=== PATIENT | female | born 1955 | race Caucasian/White ===

== ENCOUNTER 2021-03-24 13:04 | Inpatient (IN) | payer OTHER ==
[2021-03-24 16:12] LABS: BASO % 0.1 % (0-2.0); EOS % 2.7 % (0-4.5); HEMATOCRIT 26.5 % (32.4-45.2); HEMOGLOBIN 8.4 GM/dL (10.7-15.3); LYMPH % 20.6 % (8-40); MCH 23.1 pg (25.7-33.7); MCHC 31.7 g/dl (32.0-36.0); MEAN PLT VOLUME 8.8 fl (7.5-11.1); MONO % 5.5 % (3.8-10.2); NEUT % 71.1 % (42.8-82.8); PLATELET COUNT 221 10^3/uL (134-434); RBC 3.63 M/mm3 (3.60-5.2); RDW 17.4 % (11.6-15.6); WHITE BLOOD COUNT 8.3 K/mm3 (4.0-10.0)
[2021-03-24 16:31] LABS: INR 1.42 (0.83-1.09)
[2021-03-24 16:32] LABS: CHLORIDE 109 mmol/L (98-107); SODIUM 142 mmol/L (136-145)
[2021-03-24 16:34] LABS: CALCIUM 9.7 mg/dL (8.5-10.1)
[2021-03-24 16:35] LABS: ALBUMIN 4.1 g/dl (3.4-5.0); ANION GAP 7 MMOL/L (8-16); BLOOD UREA NITROGEN 29.9 mg/dL (7-18); CO2 25 mmol/L (21-32); GLUCOSE,RANDOM 134 mg/dL (74-106)
[2021-03-24 16:38] LABS: CREATININE 2.1 mg/dL (0.55-1.3); SGOT/AST 13 U/L (15-37); SGPT/ALT 27 U/L (13-61)
[2021-03-24 16:40] LABS: BILIRUBIN,TOTAL 0.3 mg/dL (0.2-1); TOT PROT 8.1 g/dl (6.4-8.2)
[2021-03-24 16:41] LABS: ALK PHOS 101 U/L (45-117)
[2021-03-24 20:07] LABS: EPI CELLS 3 /uL (0-25.1); HYALINE CASTS 0 /uL (0-3.1); PH,URINE 5.5 (5.0-8.0); URINE APPEARANCE CLEAR; URINE BACTERIA 14 /uL (0-1359); URINE BILIRUBIN NEGATIVE (NEGATIVE); URINE COLOR YELLOW; URINE GLUCOSE (UA) NEGATIVE (NEGATIVE); URINE KETONE NEGATIVE (NEGATIVE); URINE LEUK ESTERASE 1+ (NEGATIVE); URINE NITRITE NEGATIVE (NEGATIVE); URINE PROTEIN NEGATIVE (NEGATIVE); URINE RBC 1 /uL (0-23.9); URINE UROBILINOGEN 0.2 mg/dL (0.2-1.0); URINE WBC 20 /uL (0-25.8)
[2021-03-24] MEDS ORDERED: SODIUM CHLORIDE 1,000 ML IV SCH (23:15)
[2021-03-25 00:29] LABS: IRON SERUM 29 ug/dL (50-175); TOTAL IRON BINDING CAPACITY 434 ug/dL (250-450)
[2021-03-25] MEDS: LEVOTHYROXINE NA 100 MCG TABLET (FP) PO SCH (06:01)
[2021-03-25] MEDS ORDERED: ALBUTEROL SO4 HFA INHALER IH PRN (06:01)
[2021-03-25 07:22] LABS: BASO % 0.4 % (0-2.0); EOS % 2.8 % (0-4.5); HEMATOCRIT 23.4 % (32.4-45.2); HEMOGLOBIN 7.4 GM/dL (10.7-15.3); LYMPH % 22.7 % (8-40); MCH 23.3 pg (25.7-33.7); MCHC 31.8 g/dl (32.0-36.0); MEAN CELL VOLUME 73.3 fl (80-96); MEAN PLT VOLUME 9.2 fl (7.5-11.1); MONO % 6.8 % (3.8-10.2); NEUT % 67.3 % (42.8-82.8); PLATELET COUNT 179 10^3/uL (134-434); RBC 3.19 M/mm3 (3.60-5.2); WHITE BLOOD COUNT 7.3 K/mm3 (4.0-10.0)
[2021-03-25 07:37] LABS: CHLORIDE 112 mmol/L (98-107); SODIUM 143 mmol/L (136-145)
[2021-03-25 07:45] LABS: ALBUMIN 3.5 g/dl (3.4-5.0); ANION GAP 8 MMOL/L (8-16); BLOOD UREA NITROGEN 30.4 mg/dL (7-18); CALCIUM 8.3 mg/dL (8.5-10.1); CO2 24 mmol/L (21-32); GLUCOSE,RANDOM 102 mg/dL (74-106); MAGNESIUM 2.5 mg/dL (1.8-2.4)
[2021-03-25 07:48] LABS: PHOSPHOROUS 4.7 mg/dL (2.5-4.9); SGOT/AST 13 U/L (15-37); SGPT/ALT 23 U/L (13-61)
[2021-03-25 07:49] LABS: BILIRUBIN,TOTAL 0.3 mg/dL (0.2-1); TOT PROT 6.8 g/dl (6.4-8.2)
[2021-03-25 07:50] LABS: ALK PHOS 83 U/L (45-117)
[2021-03-25] MEDS: APIXABAN 5 MG TABLET PO SCH ×2 (09:00→21:41)
[2021-03-25] MEDS ORDERED: POLYETHYLENE GLYCOL (HEALTHYLAX) 3350 17 GM PACKET PO ONE (09:48)
[2021-03-25] MEDS ORDERED: ALBUTEROL SO4 HFA INHALER IH SCH (10:00)
[2021-03-25] MEDS: PANTOPRAZOLE 40 MG TABLET PO SCH (10:49)
[2021-03-25] MEDS ORDERED: IRON SUCROSE INJECTION 100 MG in SODIUM CHLORIDE 95 ML IVPB ONE (13:45)
[2021-03-25] MEDS ORDERED: PT OWN MED DRAWER 7, Y5N ONE (18:26)
[2021-03-25] MEDS ORDERED: ARIPiprazole 5 MG TABLET ONE (21:21)
[2021-03-25] MEDS ORDERED: TOLTERODINE TARTRATE LA 4 MG CAP.SR.24H (FP) PO SCH (21:30)
[2021-03-25] MEDS: BENZTROPINE MESYLATE 0.5 MG TABLET (FP) PO SCH (21:41)
[2021-03-25] MEDS: ARIPiprazole 10 MG TABLET PO SCH (21:41)
[2021-03-25] MEDS: ATORVASTATIN CA 10 MG TABLET (FP) PO SCH (21:41)
[2021-03-25] MEDS: INSULIN SLIDING SCALE (NOVOLOG) 1 VIAL SQ SCH (21:41)
[2021-03-25] MEDS: clonazePAM 0.5 MG TABLET PO PRN (21:42)
[2021-03-25] MEDS ORDERED: TOLTERODINE TARTRATE LA 2 MG CAP.SR.24H PO SCH (22:00)
[2021-03-25] MEDS: OLANZapine 10 MG TABLET PO SCH (22:47)
[2021-03-26 06:02] LABS: BASO % 0.1 % (0-2.0); EOS % 3.2 % (0-4.5); HEMATOCRIT 23.8 % (32.4-45.2); HEMOGLOBIN 7.5 GM/dL (10.7-15.3); MCH 23.1 pg (25.7-33.7); MCHC 31.4 g/dl (32.0-36.0); MEAN CELL VOLUME 73.6 fl (80-96); MEAN PLT VOLUME 8.7 fl (7.5-11.1); MONO % 6.1 % (3.8-10.2); NEUT % 83.6 % (42.8-82.8); PLATELET COUNT 150 10^3/uL (134-434); RBC 3.24 M/mm3 (3.60-5.2); RDW 16.8 % (11.6-15.6); WHITE BLOOD COUNT 5.8 K/mm3 (4.0-10.0)
[2021-03-26 06:33] LABS: ALBUMIN 3.3 g/dl (3.4-5.0); BLOOD UREA NITROGEN 30.1 mg/dL (7-18); CALCIUM 8.2 mg/dL (8.5-10.1); MAGNESIUM 2.5 mg/dL (1.8-2.4)
[2021-03-26 06:36] LABS: CREATININE 2.2 mg/dL (0.55-1.3)
[2021-03-26] MEDS: LEVOTHYROXINE NA 100 MCG TABLET (FP) PO SCH (06:36)
[2021-03-26] MEDS: INSULIN SLIDING SCALE (NOVOLOG) 1 VIAL SQ SCH ×4 (06:37→21:52)
[2021-03-26] MEDS: GLIMEPIRIDE 1 MG TABLET PO SCH (06:37)
[2021-03-26 06:38] LABS: BILIRUBIN,TOTAL 0.3 mg/dL (0.2-1); TOT PROT 6.6 g/dl (6.4-8.2)
[2021-03-26] MEDS ORDERED: IRON SUCROSE INJECTION 100 MG in SODIUM CHLORIDE 95 ML IVPB ONE (08:01)
[2021-03-26] MEDS ORDERED: PT OWN MED DRAWER 7, Y5N ONE ×4 (09:42→21:47)
[2021-03-26] MEDS: APIXABAN 5 MG TABLET PO SCH ×2 (09:43→21:52)
[2021-03-26] MEDS: PANTOPRAZOLE 40 MG TABLET PO SCH (09:43)
[2021-03-26] MEDS: clonazePAM 0.5 MG TABLET PO PRN ×2 (09:44→21:53)
[2021-03-26] MEDS: lamoTRIgine 100 MG TABLET PO SCH (09:45)
[2021-03-26] MEDS: ALBUTEROL SO4 2.5/IPRATROPIUM 0.5 INH SOL 3 ML VIAL.NEB. NEB PRN (12:00)
[2021-03-26] MEDS: FLUTICASONE/SALMETEROL 100 MCG/50 MCG DISKUS IH SCH ×2 (12:11→22:00)
[2021-03-26] MEDS ORDERED: TOLTERODINE TARTRATE LA 2 MG CAP.SR.24H PO SCH (13:00)
[2021-03-26] MEDS ORDERED: TOLTERODINE TARTRATE LA 4 MG CAP.SR.24H (FP) PO SCH (14:25)
[2021-03-26] MEDS ORDERED: BISACODYL 10 MG SUPP.RECT PR ONE (14:35)
[2021-03-26] MEDS ORDERED: TOLTERODINE TARTRATE 2 MG TABLET PO ONE (16:00)
[2021-03-26] MEDS: DOCUSATE SODIUM 100 MG CAPSULE (FP) PO SCH ×2 (16:09→21:52)
[2021-03-26] MEDS: POLYETHYLENE GLYCOL (HEALTHYLAX) 3350 17 GM PACKET PO SCH (16:12)
[2021-03-26] MEDS ORDERED: MINERAL OIL ENEMA 133 ML ENEMA PR ONE (19:23)
[2021-03-26] MEDS ORDERED: ARIPiprazole 5 MG TABLET ONE (21:45)
[2021-03-26] MEDS: ARIPiprazole 10 MG TABLET PO SCH (21:50)
[2021-03-26] MEDS: MOMETASONE FUROATE 220 MCG/IH INHALER IH SCH (21:51)
[2021-03-26] MEDS: ATORVASTATIN CA 10 MG TABLET (FP) PO SCH (21:52)
[2021-03-26] MEDS: BENZTROPINE MESYLATE 0.5 MG TABLET (FP) PO SCH (21:52)
[2021-03-26] MEDS: OLANZapine 10 MG TABLET PO SCH (21:53)
[2021-03-27] MEDS: INSULIN SLIDING SCALE (NOVOLOG) 1 VIAL SQ SCH ×4 (06:22→22:23)
[2021-03-27] MEDS ORDERED: PT OWN MED DRAWER 7, Y5N ONE ×2 (06:45→09:21)
[2021-03-27] MEDS: GLIMEPIRIDE 1 MG TABLET PO SCH (06:49)
[2021-03-27] MEDS: LEVOTHYROXINE NA 100 MCG TABLET (FP) PO SCH (06:49)
[2021-03-27] MEDS: DOCUSATE SODIUM 100 MG CAPSULE (FP) PO SCH ×3 (06:49→21:44)
[2021-03-27 07:20] LABS: ALBUMIN 3.4 g/dl (3.4-5.0); BLOOD UREA NITROGEN 24.6 mg/dL (7-18)
[2021-03-27 07:21] LABS: BASO % 0.4 % (0-2.0); EOS % 3.2 % (0-4.5); HEMATOCRIT 23.7 % (32.4-45.2); HEMOGLOBIN 7.4 GM/dL (10.7-15.3); MCH 22.8 pg (25.7-33.7); MEAN CELL VOLUME 73.6 fl (80-96); MEAN PLT VOLUME 8.7 fl (7.5-11.1); MONO % 5.5 % (3.8-10.2); NEUT % 78.9 % (42.8-82.8); PLATELET COUNT 136 10^3/uL (134-434); RBC 3.22 M/mm3 (3.60-5.2); RDW 17.2 % (11.6-15.6); WHITE BLOOD COUNT 4.3 K/mm3 (4.0-10.0)
[2021-03-27 07:23] LABS: CREATININE 2.1 mg/dL (0.55-1.3)
[2021-03-27 07:24] LABS: BILIRUBIN,TOTAL 0.3 mg/dL (0.2-1)
[2021-03-27] MEDS: ALBUTEROL SO4 2.5/IPRATROPIUM 0.5 INH SOL 3 ML VIAL.NEB. NEB PRN (07:30)
[2021-03-27 07:48] LABS: TOT PROT 6.9 g/dl (6.4-8.2)
[2021-03-27] MEDS: POLYETHYLENE GLYCOL (HEALTHYLAX) 3350 17 GM PACKET PO SCH ×3 (09:24→21:44)
[2021-03-27] MEDS: APIXABAN 5 MG TABLET PO SCH (09:24)
[2021-03-27] MEDS: PANTOPRAZOLE 40 MG TABLET PO SCH (09:24)
[2021-03-27] MEDS: lamoTRIgine 100 MG TABLET PO SCH (09:26)
[2021-03-27] MEDS: FLUTICASONE/SALMETEROL 100 MCG/50 MCG DISKUS IH SCH ×2 (09:26→22:37)
[2021-03-27] MEDS ORDERED: IRON SUCROSE INJECTION 200 MG in SODIUM CHLORIDE 90 ML IVPB ONE (09:30)
[2021-03-27] MEDS: clonazePAM 0.5 MG TABLET PO PRN (09:35)
[2021-03-27] MEDS ORDERED: HEPARIN NA (PORCINE) 5,000 UNITS/ML 1ML VIAL IVPUSH PRN ×2 (14:16)
[2021-03-27] MEDS ORDERED: ARIPiprazole 5 MG TABLET ONE (21:29)
[2021-03-27] MEDS: OLANZapine 10 MG TABLET PO SCH (21:44)
[2021-03-27] MEDS: ARIPiprazole 10 MG TABLET PO SCH (21:44)
[2021-03-27] MEDS: ATORVASTATIN CA 10 MG TABLET (FP) PO SCH (21:44)
[2021-03-27] MEDS ORDERED: HEPARIN INFUSION - 25,000 UNITS/500 ML INFUS.BAG IVPB SCH (22:00)
[2021-03-27] MEDS: MOMETASONE FUROATE 220 MCG/IH INHALER IH SCH (22:37)
[2021-03-27] MEDS: BENZTROPINE MESYLATE 0.5 MG TABLET (FP) PO SCH (23:13)
[2021-03-28] MEDS: POLYETHYLENE GLYCOL (HEALTHYLAX) 3350 17 GM PACKET PO SCH ×3 (05:58→21:02)
[2021-03-28] MEDS: DOCUSATE SODIUM 100 MG CAPSULE (FP) PO SCH ×3 (05:58→21:02)
[2021-03-28] MEDS: GLIMEPIRIDE 1 MG TABLET PO SCH (06:03)
[2021-03-28] MEDS: INSULIN SLIDING SCALE (NOVOLOG) 1 VIAL SQ SCH ×4 (06:03→21:03)
[2021-03-28] MEDS: LEVOTHYROXINE NA 100 MCG TABLET (FP) PO SCH (06:07)
[2021-03-28] MEDS ORDERED: HEPARIN NA (PORCINE) 5,000 UNITS/ML 1ML VIAL IVPUSH PRN ×2 (07:30)
[2021-03-28] MEDS ORDERED: ALBUTEROL SO4 HFA INHALER IH PRN (07:30)
[2021-03-28] MEDS ORDERED: ALBUTEROL SO4 2.5/IPRATROPIUM 0.5 INH SOL 3 ML VIAL.NEB. NEB PRN (07:30)
[2021-03-28 08:41] LABS: BASO % 0.6 % (0-2.0); EOS % 3.5 % (0-4.5); HEMATOCRIT 23.8 % (32.4-45.2); HEMOGLOBIN 7.4 GM/dL (10.7-15.3); LYMPH % 25.8 % (8-40); MCH 22.8 pg (25.7-33.7); MEAN CELL VOLUME 73.5 fl (80-96); MEAN PLT VOLUME 8.9 fl (7.5-11.1); NEUT % 60.1 % (42.8-82.8); PLATELET COUNT 154 10^3/uL (134-434); RBC 3.24 M/mm3 (3.60-5.2); RDW 17.2 % (11.6-15.6); WHITE BLOOD COUNT 4.2 K/mm3 (4.0-10.0)
[2021-03-28 09:49] LABS: ALBUMIN 3.4 g/dl (3.4-5.0); BILIRUBIN,TOTAL 0.3 mg/dL (0.2-1); BLOOD UREA NITROGEN 25.5 mg/dL (7-18); CALCIUM 8.5 mg/dL (8.5-10.1); TOT PROT 6.8 g/dl (6.4-8.2)
[2021-03-28] MEDS ORDERED: PT OWN MED DRAWER 7, Y5N ONE ×3 (11:25→20:47)
[2021-03-28] MEDS: PANTOPRAZOLE 40 MG TABLET PO SCH (11:26)
[2021-03-28] MEDS: lamoTRIgine 100 MG TABLET PO SCH (11:26)
[2021-03-28] MEDS: TOLTERODINE TARTRATE LA 4 MG CAP.SR.24H (FP) PO SCH (11:27)
[2021-03-28] MEDS: FLUTICASONE/SALMETEROL 100 MCG/50 MCG DISKUS IH SCH ×2 (11:29→21:04)
[2021-03-28] MEDS: clonazePAM 0.5 MG TABLET PO PRN ×2 (11:35→23:44)
[2021-03-28] MEDS: HEPARIN INFUSION - 25,000 UNITS/500 ML INFUS.BAG IVPB SCH ×3 (11:36→20:56)
[2021-03-28] MEDS: HEPARIN NA (PORCINE) 5,000 UNITS/ML 1ML VIAL IVPUSH PRN (12:09)
[2021-03-28] MEDS ORDERED: ARIPiprazole 5 MG TABLET ONE (20:46)
[2021-03-28] MEDS: ARIPiprazole 10 MG TABLET PO SCH (21:02)
[2021-03-28] MEDS: BENZTROPINE MESYLATE 0.5 MG TABLET (FP) PO SCH (21:02)
[2021-03-28] MEDS: ATORVASTATIN CA 10 MG TABLET (FP) PO SCH (21:02)
[2021-03-28] MEDS: OLANZapine 10 MG TABLET PO SCH (21:03)
[2021-03-28] MEDS ORDERED: MOMETASONE FUROATE 220 MCG/IH INHALER IH SCH (22:00)
[2021-03-29] MEDS: HEPARIN NA (PORCINE) 5,000 UNITS/ML 1ML VIAL IVPUSH PRN (01:50)
[2021-03-29] MEDS: HEPARIN INFUSION - 25,000 UNITS/500 ML INFUS.BAG IVPB SCH ×3 (01:53→14:12)
[2021-03-29] MEDS ORDERED: PT OWN MED DRAWER 7, Y5N ONE ×3 (05:16→10:10)
[2021-03-29] MEDS: POLYETHYLENE GLYCOL (HEALTHYLAX) 3350 17 GM PACKET PO SCH ×3 (06:14→21:29)
[2021-03-29] MEDS: DOCUSATE SODIUM 100 MG CAPSULE (FP) PO SCH ×3 (06:15→21:26)
[2021-03-29] MEDS: LEVOTHYROXINE NA 100 MCG TABLET (FP) PO SCH (06:16)
[2021-03-29] MEDS: INSULIN SLIDING SCALE (NOVOLOG) 1 VIAL SQ SCH ×4 (06:16→21:28)
[2021-03-29] MEDS: GLIMEPIRIDE 1 MG TABLET PO SCH (06:16)
[2021-03-29 07:32] LABS: BASO % 0.3 % (0-2.0); EOS % 4.5 % (0-4.5); HEMATOCRIT 24.5 % (32.4-45.2); HEMOGLOBIN 7.8 GM/dL (10.7-15.3); LYMPH % 22.9 % (8-40); MCH 23.8 pg (25.7-33.7); MCHC 31.8 g/dl (32.0-36.0); MEAN CELL VOLUME 74.9 fl (80-96); MEAN PLT VOLUME 8.9 fl (7.5-11.1); MONO % 7.6 % (3.8-10.2); NEUT % 64.7 % (42.8-82.8); PLATELET COUNT 169 10^3/uL (134-434); RBC 3.27 M/mm3 (3.60-5.2); RDW 17.6 % (11.6-15.6); WHITE BLOOD COUNT 5.9 K/mm3 (4.0-10.0)
[2021-03-29] MEDS: PANTOPRAZOLE 40 MG TABLET PO SCH (09:55)
[2021-03-29] MEDS: lamoTRIgine 100 MG TABLET PO SCH (09:56)
[2021-03-29] MEDS: TOLTERODINE TARTRATE LA 4 MG CAP.SR.24H (FP) PO SCH (09:56)
[2021-03-29 10:03] LABS: ALBUMIN 3.6 g/dl (3.4-5.0); BILIRUBIN,TOTAL 0.3 mg/dL (0.2-1); CALCIUM 8.9 mg/dL (8.5-10.1); CREATININE 2.2 mg/dL (0.55-1.3); MAGNESIUM 2.7 mg/dL (1.8-2.4)
[2021-03-29] MEDS: FLUTICASONE/SALMETEROL 100 MCG/50 MCG DISKUS IH SCH ×2 (10:03→21:30)
[2021-03-29] MEDS ORDERED: INSULIN (NOVOLOG) ASPART 100 UNITS/ML 10ML VIAL ONE (11:24)
[2021-03-29] MEDS: clonazePAM 0.5 MG TABLET PO PRN (12:04)
[2021-03-29] MEDS ORDERED: ARIPiprazole 5 MG TABLET ONE (20:55)
[2021-03-29] MEDS: ATORVASTATIN CA 10 MG TABLET (FP) PO SCH (21:26)
[2021-03-29] MEDS: ARIPiprazole 10 MG TABLET PO SCH (21:26)
[2021-03-29] MEDS: BENZTROPINE MESYLATE 0.5 MG TABLET (FP) PO SCH (21:27)
[2021-03-29] MEDS: OLANZapine 10 MG TABLET PO SCH (21:27)
[2021-03-30] MEDS ORDERED: PT OWN MED DRAWER 7, Y5N ONE ×3 (05:27→10:26)
[2021-03-30] MEDS: POLYETHYLENE GLYCOL (HEALTHYLAX) 3350 17 GM PACKET PO SCH (05:55)
[2021-03-30] MEDS: DOCUSATE SODIUM 100 MG CAPSULE (FP) PO SCH ×3 (05:56→21:15)
[2021-03-30] MEDS: INSULIN SLIDING SCALE (NOVOLOG) 1 VIAL SQ SCH ×4 (06:03→21:18)
[2021-03-30] MEDS: LEVOTHYROXINE NA 100 MCG TABLET (FP) PO SCH (06:03)
[2021-03-30] MEDS: GLIMEPIRIDE 1 MG TABLET PO SCH (06:03)
[2021-03-30] MEDS: HEPARIN INFUSION - 25,000 UNITS/500 ML INFUS.BAG IVPB SCH (06:51)
[2021-03-30 08:29] LABS: BASO % 0.3 % (0-2.0); EOS % 3.5 % (0-4.5); HEMATOCRIT 23.1 % (32.4-45.2); HEMOGLOBIN 7.1 GM/dL (10.7-15.3); LYMPH % 19.8 % (8-40); MCH 23.5 pg (25.7-33.7); MCHC 30.9 g/dl (32.0-36.0); MEAN CELL VOLUME 75.9 fl (80-96); MEAN PLT VOLUME 9.3 fl (7.5-11.1); MONO % 6.6 % (3.8-10.2); NEUT % 69.8 % (42.8-82.8); PLATELET COUNT 148 10^3/uL (134-434); RBC 3.04 M/mm3 (3.60-5.2); RDW 17.4 % (11.6-15.6); WHITE BLOOD COUNT 4.6 K/mm3 (4.0-10.0)
[2021-03-30 08:47] LABS: CALCIUM 8.5 mg/dL (8.5-10.1)
[2021-03-30 08:48] LABS: ALBUMIN 3.3 g/dl (3.4-5.0); BLOOD UREA NITROGEN 28.3 mg/dL (7-18); MAGNESIUM 2.6 mg/dL (1.8-2.4)
[2021-03-30 08:51] LABS: CREATININE 1.9 mg/dL (0.55-1.3)
[2021-03-30 08:52] LABS: BILIRUBIN,TOTAL 0.3 mg/dL (0.2-1); TOT PROT 7.1 g/dl (6.4-8.2)
[2021-03-30] MEDS ORDERED: PEG 3350/NA SULF BICARB CL/KCL 4000 ML SOLN.RECON PO ONE (09:00)
[2021-03-30] MEDS: lamoTRIgine 100 MG TABLET PO SCH (10:19)
[2021-03-30] MEDS: TOLTERODINE TARTRATE LA 4 MG CAP.SR.24H (FP) PO SCH (10:20)
[2021-03-30] MEDS: PANTOPRAZOLE 40 MG TABLET PO SCH (10:20)
[2021-03-30] MEDS: FLUTICASONE/SALMETEROL 100 MCG/50 MCG DISKUS IH SCH ×2 (10:20→21:15)
[2021-03-30] MEDS: clonazePAM 0.5 MG TABLET PO PRN ×2 (10:28→21:23)
[2021-03-30] MEDS: ACETAMINOPHEN 325 MG TABLET (FP) PO PRN (18:40)
[2021-03-30] MEDS ORDERED: BISACODYL 5 MG TABLET.DR (FP) PO ONE (20:00)
[2021-03-30] MEDS ORDERED: ARIPiprazole 5 MG TABLET ONE (20:42)
[2021-03-30] MEDS: ARIPiprazole 10 MG TABLET PO SCH (21:15)
[2021-03-30] MEDS: BENZTROPINE MESYLATE 0.5 MG TABLET (FP) PO SCH (21:15)
[2021-03-30] MEDS: OLANZapine 10 MG TABLET PO SCH (21:16)
[2021-03-30] MEDS: ATORVASTATIN CA 10 MG TABLET (FP) PO SCH (21:16)
[2021-03-31] MEDS: LEVOTHYROXINE NA 100 MCG TABLET (FP) PO SCH (06:23)
[2021-03-31] MEDS: GLIMEPIRIDE 1 MG TABLET PO SCH (06:24)
[2021-03-31] MEDS: INSULIN SLIDING SCALE (NOVOLOG) 1 VIAL SQ SCH ×4 (06:25→21:15)
[2021-03-31] MEDS: DOCUSATE SODIUM 100 MG CAPSULE (FP) PO SCH ×3 (06:38→21:09)
[2021-03-31 08:34] LABS: BASO % 0.7 % (0-2.0); EOS % 3.5 % (0-4.5); HEMATOCRIT 28.4 % (32.4-45.2); HEMOGLOBIN 9.2 GM/dL (10.7-15.3); LYMPH % 17.6 % (8-40); MCH 24.6 pg (25.7-33.7); MCHC 32.4 g/dl (32.0-36.0); MEAN CELL VOLUME 75.9 fl (80-96); MEAN PLT VOLUME 8.4 fl (7.5-11.1); MONO % 6.4 % (3.8-10.2); NEUT % 71.8 % (42.8-82.8); PLATELET COUNT 172 10^3/uL (134-434); RBC 3.74 M/mm3 (3.60-5.2); RDW 17.7 % (11.6-15.6); WHITE BLOOD COUNT 5.7 K/mm3 (4.0-10.0)
[2021-03-31 08:59] LABS: BLOOD UREA NITROGEN 21.6 mg/dL (7-18); CALCIUM 9.1 mg/dL (8.5-10.1)
[2021-03-31 09:00] LABS: ALBUMIN 3.8 g/dl (3.4-5.0); MAGNESIUM 2.8 mg/dL (1.8-2.4)
[2021-03-31 09:03] LABS: CREATININE 1.9 mg/dL (0.55-1.3)
[2021-03-31 09:04] LABS: BILIRUBIN,TOTAL 0.4 mg/dL (0.2-1); TOT PROT 7.3 g/dl (6.4-8.2)
[2021-03-31] MEDS ORDERED: PT OWN MED DRAWER 7, Y5N ONE (09:49)
[2021-03-31] MEDS: PANTOPRAZOLE 40 MG TABLET PO SCH (10:22)
[2021-03-31] MEDS: lamoTRIgine 100 MG TABLET PO SCH (10:22)
[2021-03-31] MEDS: FLUTICASONE/SALMETEROL 100 MCG/50 MCG DISKUS IH SCH ×2 (10:23→21:10)
[2021-03-31] MEDS: TOLTERODINE TARTRATE LA 4 MG CAP.SR.24H (FP) PO SCH (10:23)
[2021-03-31] MEDS ORDERED: IRON SUCROSE INJECTION 200 MG in SODIUM CHLORIDE 90 ML IVPB ONE (14:41)
[2021-03-31] MEDS ORDERED: HEPARIN NA (PORCINE) 5,000 UNITS/ML 1ML VIAL IVPUSH PRN (16:21)
[2021-03-31] MEDS: HEPARIN - 25,000 UNIT in SODIUM CHLORIDE 495 ML IV SCH (18:15)
[2021-03-31] MEDS ORDERED: ARIPiprazole 5 MG TABLET ONE (21:04)
[2021-03-31] MEDS: ATORVASTATIN CA 10 MG TABLET (FP) PO SCH (21:09)
[2021-03-31] MEDS: ARIPiprazole 10 MG TABLET PO SCH (21:09)
[2021-03-31] MEDS: OLANZapine 10 MG TABLET PO SCH (21:09)
[2021-03-31] MEDS: BENZTROPINE MESYLATE 0.5 MG TABLET (FP) PO SCH (21:16)
[2021-03-31] MEDS: clonazePAM 0.5 MG TABLET PO PRN (22:16)
[2021-04-01] MEDS: DOCUSATE SODIUM 100 MG CAPSULE (FP) PO SCH ×3 (05:01→21:44)
[2021-04-01] MEDS: LEVOTHYROXINE NA 100 MCG TABLET (FP) PO SCH (06:00)
[2021-04-01] MEDS: GLIMEPIRIDE 1 MG TABLET PO SCH (06:01)
[2021-04-01] MEDS: INSULIN SLIDING SCALE (NOVOLOG) 1 VIAL SQ SCH ×4 (06:01→22:25)
[2021-04-01 09:11] LABS: BASO % 0.4 % (0-2.0); EOS % 3.1 % (0-4.5); HEMATOCRIT 28.4 % (32.4-45.2); HEMOGLOBIN 9.1 GM/dL (10.7-15.3); LYMPH % 21.1 % (8-40); MCH 24.8 pg (25.7-33.7); MCHC 32.1 g/dl (32.0-36.0); MEAN CELL VOLUME 77.3 fl (80-96); MEAN PLT VOLUME 8.9 fl (7.5-11.1); MONO % 4.8 % (3.8-10.2); NEUT % 70.6 % (42.8-82.8); PLATELET COUNT 163 10^3/uL (134-434); RBC 3.68 M/mm3 (3.60-5.2); RDW 18.3 % (11.6-15.6); WHITE BLOOD COUNT 4.7 K/mm3 (4.0-10.0)
[2021-04-01] MEDS ORDERED: PT OWN MED DRAWER 7, Y5N ONE ×2 (09:16→19:47)
[2021-04-01 09:18] LABS: INR 1.05 (0.83-1.09); PROTHROMBIN TIME (PATIENT) 12.7 SEC (9.7-13.0)
[2021-04-01] MEDS: TOLTERODINE TARTRATE LA 4 MG CAP.SR.24H (FP) PO SCH (09:20)
[2021-04-01] MEDS: PANTOPRAZOLE 40 MG TABLET PO SCH (09:20)
[2021-04-01] MEDS: lamoTRIgine 100 MG TABLET PO SCH (09:20)
[2021-04-01 09:21] LABS: ACTIVATED PTT 36.6 SECONDS (25.2-36.5)
[2021-04-01] MEDS: FLUTICASONE/SALMETEROL 100 MCG/50 MCG DISKUS IH SCH ×2 (09:24→21:44)
[2021-04-01 09:32] LABS: ALBUMIN 3.6 g/dl (3.4-5.0); CALCIUM 8.7 mg/dL (8.5-10.1)
[2021-04-01 09:33] LABS: MAGNESIUM 2.5 mg/dL (1.8-2.4)
[2021-04-01 09:35] LABS: CREATININE 1.9 mg/dL (0.55-1.3)
[2021-04-01 09:36] LABS: BILIRUBIN,TOTAL 0.3 mg/dL (0.2-1)
[2021-04-01] MEDS: HEPARIN NA (PORCINE) 5,000 UNITS/ML 1ML VIAL IVPUSH PRN (19:39)
[2021-04-01] MEDS: HEPARIN - 25,000 UNIT in SODIUM CHLORIDE 495 ML IV SCH (19:50)
[2021-04-01] MEDS ORDERED: ARIPiprazole 5 MG TABLET ONE (20:34)
[2021-04-01] MEDS: ATORVASTATIN CA 10 MG TABLET (FP) PO SCH (21:43)
[2021-04-01] MEDS: BENZTROPINE MESYLATE 0.5 MG TABLET (FP) PO SCH (21:43)
[2021-04-01] MEDS: ARIPiprazole 10 MG TABLET PO SCH (21:43)
[2021-04-01] MEDS: OLANZapine 10 MG TABLET PO SCH (21:43)
[2021-04-01] MEDS: clonazePAM 0.5 MG TABLET PO PRN (22:24)
[2021-04-02] MEDS: HEPARIN NA (PORCINE) 5,000 UNITS/ML 1ML VIAL IVPUSH PRN (03:36)
[2021-04-02] MEDS: DOCUSATE SODIUM 100 MG CAPSULE (FP) PO SCH ×3 (05:38→21:09)
[2021-04-02] MEDS: INSULIN SLIDING SCALE (NOVOLOG) 1 VIAL SQ SCH ×4 (06:07→21:12)
[2021-04-02] MEDS: LEVOTHYROXINE NA 100 MCG TABLET (FP) PO SCH (06:07)
[2021-04-02] MEDS: GLIMEPIRIDE 1 MG TABLET PO SCH (06:07)
[2021-04-02 08:38] LABS: BASO % 0.5 % (0-2.0); EOS % 2.9 % (0-4.5); HEMOGLOBIN 9.8 GM/dL (10.7-15.3); LYMPH % 22.4 % (8-40); MCH 24.4 pg (25.7-33.7); MCHC 31.6 g/dl (32.0-36.0); MEAN CELL VOLUME 77.2 fl (80-96); MEAN PLT VOLUME 8.5 fl (7.5-11.1); NEUT % 69.2 % (42.8-82.8); PLATELET COUNT 183 10^3/uL (134-434); RBC 4.02 M/mm3 (3.60-5.2); RDW 18.9 % (11.6-15.6); WHITE BLOOD COUNT 6.2 K/mm3 (4.0-10.0)
[2021-04-02 09:06] LABS: BLOOD UREA NITROGEN 14.8 mg/dL (7-18); CALCIUM 8.8 mg/dL (8.5-10.1); MAGNESIUM 2.7 mg/dL (1.8-2.4)
[2021-04-02 09:07] LABS: ALBUMIN 3.9 g/dl (3.4-5.0)
[2021-04-02 09:10] LABS: CREATININE 1.9 mg/dL (0.55-1.3)
[2021-04-02 09:11] LABS: BILIRUBIN,TOTAL 0.4 mg/dL (0.2-1); TOT PROT 7.7 g/dl (6.4-8.2)
[2021-04-02] MEDS: lamoTRIgine 100 MG TABLET PO SCH (09:40)
[2021-04-02] MEDS: FLUTICASONE/SALMETEROL 100 MCG/50 MCG DISKUS IH SCH ×2 (09:40→21:10)
[2021-04-02] MEDS: PANTOPRAZOLE 40 MG TABLET PO SCH (09:40)
[2021-04-02] MEDS: clonazePAM 0.5 MG TABLET PO PRN (10:54)
[2021-04-02] MEDS: TOLTERODINE TARTRATE LA 4 MG CAP.SR.24H (FP) PO SCH (10:54)
[2021-04-02] MEDS: HEPARIN - 25,000 UNIT in SODIUM CHLORIDE 495 ML IV SCH (15:44)
[2021-04-02] MEDS: ALBUTEROL SO4 2.5/IPRATROPIUM 0.5 INH SOL 3 ML VIAL.NEB. NEB SCH (18:10)
[2021-04-02] MEDS ORDERED: ARIPiprazole 5 MG TABLET ONE (20:33)
[2021-04-02] MEDS: ATORVASTATIN CA 10 MG TABLET (FP) PO SCH (21:03)
[2021-04-02] MEDS: OLANZapine 10 MG TABLET PO SCH (21:03)
[2021-04-02] MEDS: BENZTROPINE MESYLATE 0.5 MG TABLET (FP) PO SCH (21:09)
[2021-04-02] MEDS: ARIPiprazole 10 MG TABLET PO SCH (21:09)
[2021-04-03] MEDS: ACETAMINOPHEN 325 MG TABLET (FP) PO PRN (01:43)
[2021-04-03] MEDS: DOCUSATE SODIUM 100 MG CAPSULE (FP) PO SCH ×3 (05:43→21:38)
[2021-04-03] MEDS: INSULIN SLIDING SCALE (NOVOLOG) 1 VIAL SQ SCH ×4 (06:01→21:38)
[2021-04-03] MEDS: LEVOTHYROXINE NA 100 MCG TABLET (FP) PO SCH (06:01)
[2021-04-03] MEDS: GLIMEPIRIDE 1 MG TABLET PO SCH (06:01)
[2021-04-03 08:16] LABS: BASO % 0.3 % (0-2.0); EOS % 3.2 % (0-4.5); HEMATOCRIT 28.4 % (32.4-45.2); HEMOGLOBIN 9.1 GM/dL (10.7-15.3); LYMPH % 22.8 % (8-40); MCH 24.8 pg (25.7-33.7); MCHC 32.1 g/dl (32.0-36.0); MEAN CELL VOLUME 77.4 fl (80-96); MEAN PLT VOLUME 8.8 fl (7.5-11.1); NEUT % 67.7 % (42.8-82.8); PLATELET COUNT 158 10^3/uL (134-434); RBC 3.66 M/mm3 (3.60-5.2); RDW 19.3 % (11.6-15.6); WHITE BLOOD COUNT 5.1 K/mm3 (4.0-10.0)
[2021-04-03 08:43] LABS: ALBUMIN 3.7 g/dl (3.4-5.0); MAGNESIUM 2.6 mg/dL (1.8-2.4)
[2021-04-03 08:48] LABS: BLOOD UREA NITROGEN 15.4 mg/dL (7-18); CALCIUM 8.9 mg/dL (8.5-10.1)
[2021-04-03] MEDS ORDERED: PT OWN MED DRAWER 7, Y5N ONE ×3 (08:52→21:41)
[2021-04-03 08:53] LABS: TOT PROT 6.9 g/dl (6.4-8.2)
[2021-04-03 08:55] LABS: BILIRUBIN,TOTAL 0.4 mg/dL (0.2-1)
[2021-04-03] MEDS: lamoTRIgine 100 MG TABLET PO SCH (09:17)
[2021-04-03] MEDS: PANTOPRAZOLE 40 MG TABLET PO SCH (09:18)
[2021-04-03] MEDS: FLUTICASONE/SALMETEROL 100 MCG/50 MCG DISKUS IH SCH ×2 (09:19→22:42)
[2021-04-03] MEDS: TOLTERODINE TARTRATE LA 4 MG CAP.SR.24H (FP) PO SCH (09:21)
[2021-04-03] MEDS: HEPARIN - 25,000 UNIT in SODIUM CHLORIDE 495 ML IV SCH ×2 (13:09→17:25)
[2021-04-03] MEDS: HEPARIN NA (PORCINE) 5,000 UNITS/ML 1ML VIAL IVPUSH PRN (13:50)
[2021-04-03] MEDS: ALBUTEROL SO4 2.5/IPRATROPIUM 0.5 INH SOL 3 ML VIAL.NEB. NEB SCH (17:25)
[2021-04-03] MEDS ORDERED: ARIPiprazole 5 MG TABLET ONE (20:41)
[2021-04-03] MEDS: OLANZapine 10 MG TABLET PO SCH (21:38)
[2021-04-03] MEDS: ATORVASTATIN CA 10 MG TABLET (FP) PO SCH (21:39)
[2021-04-03] MEDS: ARIPiprazole 10 MG TABLET PO SCH (21:39)
[2021-04-03] MEDS: BENZTROPINE MESYLATE 0.5 MG TABLET (FP) PO SCH (21:41)
[2021-04-03] MEDS: clonazePAM 0.5 MG TABLET PO PRN (21:44)
[2021-04-04] MEDS: DOCUSATE SODIUM 100 MG CAPSULE (FP) PO SCH ×3 (05:13→21:04)
[2021-04-04] MEDS: HEPARIN - 25,000 UNIT in SODIUM CHLORIDE 495 ML IV SCH ×3 (05:19→22:57)
[2021-04-04] MEDS: LEVOTHYROXINE NA 100 MCG TABLET (FP) PO SCH (06:04)
[2021-04-04] MEDS: GLIMEPIRIDE 1 MG TABLET PO SCH (06:04)
[2021-04-04] MEDS: INSULIN SLIDING SCALE (NOVOLOG) 1 VIAL SQ SCH ×4 (06:04→21:04)
[2021-04-04 08:16] LABS: HEMATOCRIT 29.8 % (32.4-45.2); HEMOGLOBIN 9.7 GM/dL (10.7-15.3); MCH 25.1 pg (25.7-33.7); MCHC 32.4 g/dl (32.0-36.0); MEAN CELL VOLUME 77.4 fl (80-96); MEAN PLT VOLUME 8.7 fl (7.5-11.1); PLATELET COUNT 178 10^3/uL (134-434); RBC 3.85 M/mm3 (3.60-5.2); RDW 19.9 % (11.6-15.6); WHITE BLOOD COUNT 5.6 K/mm3 (4.0-10.0)
[2021-04-04] MEDS ORDERED: PEG 3350/NA SULF BICARB CL/KCL 4000 ML SOLN.RECON PO ONE (09:00)
[2021-04-04] MEDS: lamoTRIgine 100 MG TABLET PO SCH (09:25)
[2021-04-04] MEDS: PANTOPRAZOLE 40 MG TABLET PO SCH (09:25)
[2021-04-04] MEDS: FLUTICASONE/SALMETEROL 100 MCG/50 MCG DISKUS IH SCH ×2 (09:27→21:04)
[2021-04-04] MEDS: ALBUTEROL SO4 2.5/IPRATROPIUM 0.5 INH SOL 3 ML VIAL.NEB. NEB SCH (09:32)
[2021-04-04] MEDS ORDERED: INSULIN (NOVOLOG) ASPART 100 UNITS/ML 10ML VIAL ONE ×4 (11:36→17:09)
[2021-04-04] MEDS ORDERED: PT OWN MED DRAWER 7, Y5N ONE ×5 (13:18→20:55)
[2021-04-04] MEDS: ERYTHROMYCIN BASE 250 MG TAB PO SCH ×3 (13:22→21:01)
[2021-04-04] MEDS: NEOMYCIN SO4 500 MG TABLET PO SCH ×3 (13:23→21:01)
[2021-04-04 13:34] LABS: CALCIUM 8.4 mg/dL (8.5-10.1)
[2021-04-04 13:35] LABS: ALBUMIN 3.8 g/dl (3.4-5.0); BLOOD UREA NITROGEN 14.8 mg/dL (7-18)
[2021-04-04 13:38] LABS: CREATININE 2.1 mg/dL (0.55-1.3); TOT PROT 7.4 g/dl (6.4-8.2)
[2021-04-04 13:39] LABS: BILIRUBIN,TOTAL 0.3 mg/dL (0.2-1)
[2021-04-04 17:07] VITALS: BMI 35.2
[2021-04-04] MEDS ORDERED: ARIPiprazole 5 MG TABLET ONE (20:53)
[2021-04-04] MEDS: BENZTROPINE MESYLATE 0.5 MG TABLET (FP) PO SCH (21:01)
[2021-04-04] MEDS: ARIPiprazole 10 MG TABLET PO SCH (21:02)
[2021-04-04] MEDS: OLANZapine 10 MG TABLET PO SCH (21:03)
[2021-04-04] MEDS: ATORVASTATIN CA 10 MG TABLET (FP) PO SCH (21:03)
[2021-04-04] MEDS ORDERED: clonazePAM 0.5 MG TABLET PO ONE (22:14)
[2021-04-05] MEDS: INSULIN SLIDING SCALE (NOVOLOG) 1 VIAL SQ SCH ×4 (06:06→22:18)
[2021-04-05] MEDS ORDERED: PT OWN MED DRAWER 7, Y5N ONE ×2 (06:08→08:56)
[2021-04-05] MEDS: DOCUSATE SODIUM 100 MG CAPSULE (FP) PO SCH ×2 (06:11→14:28)
[2021-04-05] MEDS: GLIMEPIRIDE 1 MG TABLET PO SCH (06:11)
[2021-04-05] MEDS: LEVOTHYROXINE NA 100 MCG TABLET (FP) PO SCH (06:11)
[2021-04-05] MEDS ORDERED: BUPIVACAINE LIPOSOME/PF (EXPAREL) 266 MG/20 ML VIAL ONE (08:15)
[2021-04-05] MEDS ORDERED: BUPIVACAINE HCL/PF 0.5% (5MG/ML) 10 ML VIAL ONE (08:15)
[2021-04-05] MEDS: ALBUTEROL SO4 2.5/IPRATROPIUM 0.5 INH SOL 3 ML VIAL.NEB. NEB SCH (08:25)
[2021-04-05] MEDS: PANTOPRAZOLE 40 MG TABLET PO SCH (09:02)
[2021-04-05] MEDS: lamoTRIgine 100 MG TABLET PO SCH (09:02)
[2021-04-05] MEDS: FLUTICASONE/SALMETEROL 100 MCG/50 MCG DISKUS IH SCH ×2 (09:03→22:16)
[2021-04-05] MEDS ORDERED: LACTATED RINGERS SOLUTION 1,000 ML/1,000 ML INFUS.BAG IV SCH ×2 (09:15→17:31)
[2021-04-05 09:19] LABS: HEMATOCRIT 29.7 % (32.4-45.2); HEMOGLOBIN 9.5 GM/dL (10.7-15.3); MCHC 32.2 g/dl (32.0-36.0); MEAN CELL VOLUME 77.6 fl (80-96); MEAN PLT VOLUME 8.7 fl (7.5-11.1); PLATELET COUNT 154 10^3/uL (134-434); RBC 3.82 M/mm3 (3.60-5.2); RDW 21.2 % (11.6-15.6); WHITE BLOOD COUNT 5.9 K/mm3 (4.0-10.0)
[2021-04-05 09:36] LABS: INR 1.1 (0.83-1.09); PROTHROMBIN TIME (PATIENT) 13.3 SEC (9.7-13.0)
[2021-04-05] MEDS ORDERED: PROPOFOL 20 ML ONE (09:50)
[2021-04-05] MEDS ORDERED: DEXAMETHASONE SOD PHOSPHATE 4 MG/1 ML VIAL ONE (09:50)
[2021-04-05] MEDS ORDERED: ROCURONIUM BROMIDE 50 MG/5 ML SYRINGE ONE ×2 (09:50→12:50)
[2021-04-05] MEDS ORDERED: ERTAPENEM SODIUM 1 GM in SODIUM CHLORIDE 50 ML IVPB ONE (10:00)
[2021-04-05] MEDS ORDERED: MIDAZOLAM HCL 2 MG/2 ML SINGLE DOSE VIAL ONE ×2 (10:53)
[2021-04-05] MEDS ORDERED: HEPARIN NA (PORCINE) 5,000 UNITS/ML 1ML VIAL ONE (12:19)
[2021-04-05] MEDS ORDERED: ACETAMINOPHEN INJECTION 100 ML IVPB ONE ×2 (12:27→19:18)
[2021-04-05] MEDS ORDERED: ONDANSETRON 4 MG/2 ML VIAL IVPUSH PRN (16:59)
[2021-04-05] MEDS ORDERED: LACTATED RINGERS SOLUTION 1,000 ML IV SCH (17:00)
[2021-04-05] MEDS ORDERED: HYDROmorphone HCl 2 MG/ML VIAL IVPUSH PRN (17:00)
[2021-04-05] MEDS: HYDROmorphone HCl 2 MG/ML VIAL IVPUSH PRN ×4 (17:28→18:30)
[2021-04-05] MEDS ORDERED: SODIUM CHLORIDE 1,000 ML IV SCH (17:31)
[2021-04-05] MEDS ORDERED: ALBUTEROL SO4 2.5/IPRATROPIUM 0.5 INH SOL 3 ML VIAL.NEB. NEB PRN (17:31)
[2021-04-05] MEDS: ARIPiprazole 5 MG TABLET PO SCH (21:52)
[2021-04-05] MEDS: OLANZapine 10 MG TABLET PO SCH (21:53)
[2021-04-05] MEDS: BENZTROPINE MESYLATE 0.5 MG TABLET (FP) PO SCH (21:53)
[2021-04-05] MEDS ORDERED: ACETAMINOPHEN 1000 MG/100 ML VIAL (NON FORMULARY) IVPB SCH (23:35)
[2021-04-06] MEDS ORDERED: clonazePAM 0.5 MG TABLET PO ONE (00:35)
[2021-04-06] MEDS: HYDROmorphone HCl 2 MG/ML VIAL IVPB PRN ×3 (02:07→16:46)
[2021-04-06] MEDS: ACETAMINOPHEN 1000 MG/100 ML VIAL (NON FORMULARY) IVPB SCH ×3 (04:43→12:27)
[2021-04-06] MEDS ORDERED: INSULIN (NOVOLOG) ASPART 100 UNITS/ML 10ML VIAL ONE (05:41)
[2021-04-06] MEDS: LEVOTHYROXINE NA 100 MCG TABLET (FP) PO SCH (06:00)
[2021-04-06] MEDS: INSULIN SLIDING SCALE (NOVOLOG) 1 VIAL SQ SCH ×4 (06:02→21:33)
[2021-04-06 08:40] LABS: BASO % 0.2 % (0-2.0); EOS % 0.1 % (0-4.5); HEMATOCRIT 28.6 % (32.4-45.2); HEMOGLOBIN 9.2 GM/dL (10.7-15.3); LYMPH % 12.8 % (8-40); MCH 25.6 pg (25.7-33.7); MCHC 32.2 g/dl (32.0-36.0); MEAN CELL VOLUME 79.4 fl (80-96); MONO % 7.5 % (3.8-10.2); NEUT % 79.4 % (42.8-82.8); RDW 22.5 % (11.6-15.6); WHITE BLOOD COUNT 5.6 K/mm3 (4.0-10.0)
[2021-04-06] MEDS: ALBUTEROL SO4 2.5/IPRATROPIUM 0.5 INH SOL 3 ML VIAL.NEB. NEB SCH (09:00)
[2021-04-06 09:10] LABS: CALCIUM 8.5 mg/dL (8.5-10.1)
[2021-04-06 09:11] LABS: BLOOD UREA NITROGEN 14.3 mg/dL (7-18)
[2021-04-06 09:14] LABS: CREATININE 1.9 mg/dL (0.55-1.3)
[2021-04-06] MEDS: lamoTRIgine 100 MG TABLET PO SCH (09:39)
[2021-04-06] MEDS: FLUTICASONE/SALMETEROL 100 MCG/50 MCG DISKUS IH SCH ×2 (09:39→21:32)
[2021-04-06 09:40] LABS: ANISOCYTOSIS 1+; MACROCYTOSIS 0; PLATELET ESTIMATE NORMAL
[2021-04-06] MEDS ORDERED: PT OWN MED DRAWER 7, Y5N ONE ×2 (09:46→10:03)
[2021-04-06] MEDS: TOLTERODINE TARTRATE LA 4 MG CAP.SR.24H (FP) PO SCH (09:52)
[2021-04-06] MEDS: DEXTROSE 5%-1/3 NS - 500 ML IV SCH (16:45)
[2021-04-06] MEDS: APIXABAN 5 MG TABLET PO SCH (21:32)
[2021-04-06] MEDS: ARIPiprazole 5 MG TABLET PO SCH (21:32)
[2021-04-06] MEDS: OLANZapine 10 MG TABLET PO SCH (21:32)
[2021-04-06] MEDS: BENZTROPINE MESYLATE 0.5 MG TABLET (FP) PO SCH (21:32)
[2021-04-06] MEDS ORDERED: HEPARIN NA (PORCINE) 5,000 UNITS/ML 1ML VIAL SQ SCH (22:00)
[2021-04-07] MEDS: HYDROmorphone HCl 2 MG/ML VIAL IVPB PRN ×3 (01:16→21:41)
[2021-04-07] MEDS: DEXTROSE 5%-1/3 NS - 500 ML IV SCH ×3 (01:21→16:20)
[2021-04-07] MEDS: LEVOTHYROXINE NA 100 MCG TABLET (FP) PO SCH (06:51)
[2021-04-07] MEDS: INSULIN SLIDING SCALE (NOVOLOG) 1 VIAL SQ SCH ×4 (06:54→21:07)
[2021-04-07] MEDS: ALBUTEROL SO4 2.5/IPRATROPIUM 0.5 INH SOL 3 ML VIAL.NEB. NEB SCH (08:25)
[2021-04-07 09:52] LABS: HEMATOCRIT 30.9 % (32.4-45.2); HEMOGLOBIN 9.7 GM/dL (10.7-15.3); MCH 25.1 pg (25.7-33.7); MCHC 31.2 g/dl (32.0-36.0); MEAN CELL VOLUME 80.3 fl (80-96); MEAN PLT VOLUME 9.4 fl (7.5-11.1); PLATELET COUNT 182 10^3/uL (134-434); RBC 3.85 M/mm3 (3.60-5.2); RDW 23.2 % (11.6-15.6); WHITE BLOOD COUNT 7.2 K/mm3 (4.0-10.0)
[2021-04-07 10:10] LABS: ALBUMIN 3.9 g/dl (3.4-5.0); BLOOD UREA NITROGEN 14.2 mg/dL (7-18)
[2021-04-07] MEDS: lamoTRIgine 100 MG TABLET PO SCH (10:13)
[2021-04-07] MEDS: APIXABAN 5 MG TABLET PO SCH ×2 (10:14→21:07)
[2021-04-07 10:15] LABS: BILIRUBIN,TOTAL 0.4 mg/dL (0.2-1); TOT PROT 7.5 g/dl (6.4-8.2)
[2021-04-07] MEDS: TOLTERODINE TARTRATE LA 4 MG CAP.SR.24H (FP) PO SCH (10:17)
[2021-04-07] MEDS: FLUTICASONE/SALMETEROL 100 MCG/50 MCG DISKUS IH SCH ×2 (10:18→21:08)
[2021-04-07] MEDS ORDERED: PT OWN MED DRAWER 7, Y5N ONE (20:40)
[2021-04-07] MEDS: ARIPiprazole 5 MG TABLET PO SCH (21:07)
[2021-04-07] MEDS: OLANZapine 10 MG TABLET PO SCH (21:07)
[2021-04-07] MEDS: BENZTROPINE MESYLATE 0.5 MG TABLET (FP) PO SCH (21:07)
[2021-04-07] MEDS ORDERED: MELATONIN 5 MG TABLETS PO PRN (22:00)
[2021-04-08] MEDS: HYDROmorphone HCl 2 MG/ML VIAL IVPB PRN (05:30)
[2021-04-08] MEDS: INSULIN SLIDING SCALE (NOVOLOG) 1 VIAL SQ SCH ×4 (06:26→21:43)
[2021-04-08] MEDS: LEVOTHYROXINE NA 100 MCG TABLET (FP) PO SCH (06:26)
[2021-04-08] MEDS: ALBUTEROL SO4 2.5/IPRATROPIUM 0.5 INH SOL 3 ML VIAL.NEB. NEB SCH (09:18)
[2021-04-08 09:38] LABS: HEMATOCRIT 26.2 % (32.4-45.2); HEMOGLOBIN 8.4 GM/dL (10.7-15.3); MCH 25.8 pg (25.7-33.7); MCHC 32.3 g/dl (32.0-36.0); MEAN CELL VOLUME 79.8 fl (80-96); PLATELET COUNT 160 10^3/uL (134-434); RBC 3.28 M/mm3 (3.60-5.2); RDW 22.5 % (11.6-15.6); WHITE BLOOD COUNT 6.2 K/mm3 (4.0-10.0)
[2021-04-08 09:57] LABS: ALBUMIN 3.2 g/dl (3.4-5.0); BLOOD UREA NITROGEN 13.9 mg/dL (7-18)
[2021-04-08] MEDS ORDERED: PT OWN MED DRAWER 7, Y5N ONE ×2 (09:58→11:34)
[2021-04-08 10:00] LABS: CALCIUM 8.3 mg/dL (8.5-10.1)
[2021-04-08 10:01] LABS: CREATININE 1.9 mg/dL (0.55-1.3)
[2021-04-08 10:02] LABS: BILIRUBIN,TOTAL 0.4 mg/dL (0.2-1)
[2021-04-08 10:03] LABS: TOT PROT 6.5 g/dl (6.4-8.2)
[2021-04-08] MEDS: APIXABAN 5 MG TABLET PO SCH ×2 (10:03→21:36)
[2021-04-08] MEDS: TOLTERODINE TARTRATE LA 4 MG CAP.SR.24H (FP) PO SCH (10:03)
[2021-04-08] MEDS: lamoTRIgine 100 MG TABLET PO SCH (10:03)
[2021-04-08] MEDS: FLUTICASONE/SALMETEROL 100 MCG/50 MCG DISKUS IH SCH ×3 (10:03→21:37)
[2021-04-08] MEDS: ACETAMINOPHEN 325 MG TABLET (FP) PO PRN ×2 (11:43→18:07)
[2021-04-08] MEDS: DEXTROSE 5%-1/3 NS - 500 ML IV SCH (13:24)
[2021-04-08] MEDS: BENZTROPINE MESYLATE 0.5 MG TABLET (FP) PO SCH (21:36)
[2021-04-08] MEDS: ARIPiprazole 5 MG TABLET PO SCH (21:36)
[2021-04-08] MEDS: OLANZapine 10 MG TABLET PO SCH (21:37)
[2021-04-09] MEDS: HYDROmorphone HCl 2 MG/ML VIAL IVPB PRN (03:43)
[2021-04-09] MEDS: INSULIN SLIDING SCALE (NOVOLOG) 1 VIAL SQ SCH ×4 (06:14→21:09)
[2021-04-09] MEDS: LEVOTHYROXINE NA 100 MCG TABLET (FP) PO SCH (06:14)
[2021-04-09 08:38] LABS: HEMATOCRIT 27.9 % (32.4-45.2); HEMOGLOBIN 8.9 GM/dL (10.7-15.3); MCH 25.4 pg (25.7-33.7); MCHC 31.9 g/dl (32.0-36.0); MEAN CELL VOLUME 79.4 fl (80-96); MEAN PLT VOLUME 8.6 fl (7.5-11.1); PLATELET COUNT 163 10^3/uL (134-434); RBC 3.52 M/mm3 (3.60-5.2); RDW 22.9 % (11.6-15.6); WHITE BLOOD COUNT 5.8 K/mm3 (4.0-10.0)
[2021-04-09 09:09] LABS: CALCIUM 8.3 mg/dL (8.5-10.1)
[2021-04-09 09:10] LABS: ALBUMIN 3.3 g/dl (3.4-5.0)
[2021-04-09 09:14] LABS: CREATININE 2.2 mg/dL (0.55-1.3)
[2021-04-09 09:16] LABS: BILIRUBIN,TOTAL 0.4 mg/dL (0.2-1); TOT PROT 6.8 g/dl (6.4-8.2)
[2021-04-09 09:34] LABS: BLOOD UREA NITROGEN 21.1 mg/dL (7-18)
[2021-04-09] MEDS ORDERED: PT OWN MED DRAWER 7, Y5N ONE (09:55)
[2021-04-09] MEDS: ACETAMINOPHEN 325 MG TABLET (FP) PO PRN ×2 (09:57→20:14)
[2021-04-09] MEDS: lamoTRIgine 100 MG TABLET PO SCH (09:57)
[2021-04-09] MEDS: APIXABAN 5 MG TABLET PO SCH ×2 (09:57→21:05)
[2021-04-09] MEDS: TOLTERODINE TARTRATE LA 4 MG CAP.SR.24H (FP) PO SCH (09:58)
[2021-04-09] MEDS: FLUTICASONE/SALMETEROL 100 MCG/50 MCG DISKUS IH SCH ×2 (09:58→21:05)
[2021-04-09] MEDS: ALBUTEROL SO4 2.5/IPRATROPIUM 0.5 INH SOL 3 ML VIAL.NEB. NEB SCH (10:00)
[2021-04-09] MEDS ORDERED: INSULIN (NOVOLOG) ASPART 100 UNITS/ML 10ML VIAL ONE (11:27)
[2021-04-09] MEDS: BENZTROPINE MESYLATE 0.5 MG TABLET (FP) PO SCH (21:05)
[2021-04-09] MEDS: OLANZapine 10 MG TABLET PO SCH (21:05)
[2021-04-09] MEDS: ARIPiprazole 5 MG TABLET PO SCH (21:05)
[2021-04-10] MEDS: INSULIN SLIDING SCALE (NOVOLOG) 1 VIAL SQ SCH ×3 (06:28→16:43)
[2021-04-10] MEDS: LEVOTHYROXINE NA 100 MCG TABLET (FP) PO SCH (06:28)
[2021-04-10] MEDS: ALBUTEROL SO4 2.5/IPRATROPIUM 0.5 INH SOL 3 ML VIAL.NEB. NEB SCH (09:05)
[2021-04-10 09:29] LABS: HEMATOCRIT 27.7 % (32.4-45.2); HEMOGLOBIN 8.8 GM/dL (10.7-15.3); MCH 25.3 pg (25.7-33.7); MCHC 31.7 g/dl (32.0-36.0); MEAN CELL VOLUME 79.7 fl (80-96); MEAN PLT VOLUME 8.8 fl (7.5-11.1); PLATELET COUNT 179 10^3/uL (134-434); RBC 3.48 M/mm3 (3.60-5.2); RDW 23.1 % (11.6-15.6); WHITE BLOOD COUNT 5.6 K/mm3 (4.0-10.0)
[2021-04-10 09:49] LABS: ALBUMIN 3.2 g/dl (3.4-5.0); BLOOD UREA NITROGEN 30.7 mg/dL (7-18); CALCIUM 8.5 mg/dL (8.5-10.1)
[2021-04-10 09:52] LABS: CREATININE 2.1 mg/dL (0.55-1.3)
[2021-04-10 09:53] LABS: BILIRUBIN,TOTAL 0.3 mg/dL (0.2-1); TOT PROT 6.9 g/dl (6.4-8.2)
[2021-04-10] MEDS: APIXABAN 5 MG TABLET PO SCH (11:32)
[2021-04-10] MEDS: lamoTRIgine 100 MG TABLET PO SCH (11:32)
[2021-04-10] MEDS: TOLTERODINE TARTRATE LA 4 MG CAP.SR.24H (FP) PO SCH (11:33)
[2021-04-10] MEDS: FLUTICASONE/SALMETEROL 100 MCG/50 MCG DISKUS IH SCH (11:33)
[2021-04-10 15:02] VITALS: BP 105/65; PULSE 76; TEMP 98.6
[2021-04-10] MEDS: ACETAMINOPHEN 325 MG TABLET (FP) PO PRN (16:32)
== END 2021-04-10 17:42 | disposition home or self-care (01) | DRG 330 ==
LOC: JER 13:04 → MERGE 23:36 → JERBED 23:36 → J2W 03-25 03:57 → OBSVTOIN 03-27 14:20 → J8W 03-27 18:28
PROVIDERS: ADMIT Internal Medicine; ATTEND Nurse Practitioner Family
PROC: 30233N1 Transfusion of Nonautologous Red Blood Cells into Peripheral Vein, Percutaneous Approach (ICD-10-PCS; 2021-03-30)
PROC: 0DB58ZX Excision of Esophagus, Via Natural or Artificial Opening Endoscopic, Diagnostic (ICD-10-PCS; 2021-03-31)
PROC: 0DBN8ZX Excision of Sigmoid Colon, Via Natural or Artificial Opening Endoscopic, Diagnostic (ICD-10-PCS; 2021-03-31)
PROC: 0DB68ZX Excision of Stomach, Via Natural or Artificial Opening Endoscopic, Diagnostic (ICD-10-PCS; 2021-03-31)
PROC: 8E0W8CZ Robotic Assisted Procedure of Trunk Region, Via Natural or Artificial Opening Endoscopic (ICD-10-PCS; 2021-04-05)
PROC: 0DTN4ZZ Resection of Sigmoid Colon, Percutaneous Endoscopic Approach (ICD-10-PCS; principal; 2021-04-05 10:15)
DX: C18.7 Malignant neoplasm of sigmoid colon (principal); C77.2 Secondary and unspecified malignant neoplasm of intra-abdominal lymph nodes; I31.3 Pericardial effusion (noninflammatory); N17.9 Acute kidney failure, unspecified; I13.0 Hypertensive heart and chronic kidney disease with heart failure and stage 1 through stage 4 chronic kidney disease, or unspecified chronic kidney disease; E87.0 Hyperosmolality and hypernatremia; I50.30 Unspecified diastolic (congestive) heart failure; E03.9 Hypothyroidism, unspecified; J44.9 Chronic obstructive pulmonary disease, unspecified; D50.0 Iron deficiency anemia secondary to blood loss (chronic); E11.22 Type 2 diabetes mellitus with diabetic chronic kidney disease; I50.9 Heart failure, unspecified; J45.909 Unspecified asthma, uncomplicated; E78.5 Hyperlipidemia, unspecified; E66.9 Obesity, unspecified; Z68.35 Body mass index [BMI] 35.0-35.9, adult; I48.0 Paroxysmal atrial fibrillation; N18.30 Chronic kidney disease, stage 3 unspecified; K21.9 Gastro-esophageal reflux disease without esophagitis; K59.00 Constipation, unspecified; F20.9 Schizophrenia, unspecified; K44.9 Diaphragmatic hernia without obstruction or gangrene; K64.8 Other hemorrhoids; K29.50 Unspecified chronic gastritis without bleeding; N18.9 Chronic kidney disease, unspecified
CPT/HCPCS: 36415; 36430; 71046-TC-FY; 71250-TC; 74176-TC; 76775-TC; 80048; 80053; 81003; 82272; 82378; 82550; 82607; 82728; 82746; 82962; 83036; 83540; 83550; 83735; 83880; 84100; 84443; 84484; 85025; 85027; 85379; 85610; 85730; 86850; 86870; 86900; 86901; 86902; 86922; 87086; 88305-TC; 88309-TC; 93005; 93010; 93306-TC; 93308; 93970-TC; 94640; 94760; 97116-GP; 97161-GP; 99285-25; C9803; G0378; J0131; J1644; J1756; P9058; U0003; U0005

== ENCOUNTER 2021-05-20 15:07 | Emergency (ER) | payer OTHER ==
[2021-05-20 16:02] VITALS: BMI 35.4
[2021-05-20] MEDS ORDERED: ACETAMINOPHEN 1000 MG/100 ML VIAL (NON FORMULARY) IVPB ONE (17:53)
[2021-05-20] MEDS ORDERED: ACETAMINOPHEN INJECTION 100 ML IVPB ONE ×2 (18:31→22:39)
[2021-05-20 18:45] LABS: BASO % 0.7 % (0-2.0); EOS % 2.5 % (0-4.5); HEMATOCRIT 31.5 % (32.4-45.2); HEMOGLOBIN 10.4 GM/dL (10.7-15.3); LYMPH % 20.2 % (8-40); MCH 26.6 pg (25.7-33.7); MCHC 32.9 g/dl (32.0-36.0); MEAN CELL VOLUME 80.7 fl (80-96); MEAN PLT VOLUME 8.5 fl (7.5-11.1); MONO % 4.8 % (3.8-10.2); NEUT % 71.8 % (42.8-82.8); PLATELET COUNT 305 10^3/uL (134-434); RBC 3.91 M/mm3 (3.60-5.2); RDW 21.9 % (11.6-15.6); WHITE BLOOD COUNT 10.8 K/mm3 (4.0-10.0)
[2021-05-20 19:01] LABS: CALCIUM 9.5 mg/dL (8.5-10.1)
[2021-05-20 19:02] LABS: ALBUMIN 4.2 g/dl (3.4-5.0); BLOOD UREA NITROGEN 33.9 mg/dL (7-18)
[2021-05-20 19:05] LABS: CREATININE 2.2 mg/dL (0.55-1.3)
[2021-05-20 19:07] LABS: BILIRUBIN,TOTAL 0.3 mg/dL (0.2-1); TOT PROT 8.3 g/dl (6.4-8.2)
[2021-05-20 20:32] LABS: ANISOCYTOSIS 3+; MACROCYTOSIS 0; OVALOCYTE 1+; PLATELET ESTIMATE NORMAL; TEAR DROP CELLS 1+
[2021-05-20] MEDS ORDERED: morphine CARPU-JECT 2 MG/1 ML DISP.SYRIN IVPUSH ONE (21:41)
[2021-05-20] MEDS ORDERED: POLYETHYLENE GLYCOL (HEALTHYLAX) 3350 17 GM PACKET PO ONE (21:42)
[2021-05-20] MEDS ORDERED: GLYCERIN 1 RECTAL SUPPOSITORY, ADULT PR ONE (21:45)
[2021-05-20] MEDS ORDERED: POLYETHYLENE GLYCOL (HEALTHYLAX) 3350 17 GM PACKET ONE (21:47)
[2021-05-20] MEDS ORDERED: MORPHINE SULFATE 2 MG/ML VIAL ONE (21:49)
[2021-05-20] MEDS ORDERED: GLYCERIN 1 RECTAL SUPPOSITORY, PEDIATRIC RC ONE (22:06)
[2021-05-20] MEDS ORDERED: amLODIPine BESYLATE 5 MG TABLET (FP) ONE (22:39)
[2021-05-20] MEDS ORDERED: MINERAL OIL ENEMA 133 ML ENEMA PR ONE (22:54)
[2021-05-20] MEDS ORDERED: SODIUM CHLORIDE 0.9% 500 ML INFUS.BAG IV ONE (23:39)
[2021-05-20] MEDS ORDERED: LACTULOSE 20 GM/30 ML UDC (FOR ORAL USE ONLY) PO ONE (23:42)
[2021-05-21] MEDS ORDERED: LACTULOSE 20 GM/30 ML UDC (FOR ORAL USE ONLY) ONE (00:14)
[2021-05-21] MEDS ORDERED: SODIUM PHOSPHATE/NA BIPHOS 133 ML ENEMA PR ONE (01:00)
[2021-05-21 01:45] VITALS: BP 121/81; PULSE 83; TEMP 98.1
== END 2021-05-21 01:45 ==
LOC: JER 15:07
PROC: 3E033NZ Introduction of Analgesics, Hypnotics, Sedatives into Peripheral Vein, Percutaneous Approach (ICD-10-PCS; principal; 2021-05-20)
PROC: 3E033GC Introduction of Other Therapeutic Substance into Peripheral Vein, Percutaneous Approach (ICD-10-PCS; 2021-05-20)
DX: K59.00 Constipation, unspecified (principal); R10.84 Generalized abdominal pain
CPT/HCPCS: 36415; 74176-TC; 80053; 83605; 83690; 85025; 96374; 96375; 99285-25; C9803; J0131; U0003; U0005

== ENCOUNTER 2023-12-11 04:21 | Day surgery (SDC) | payer OTHER ==
[2023-12-09 11:37] VITALS: BMI 28.4
[~2023-12-11 04:21] MED LIST: ACETAMINOPHEN 325 MG TABLET (FP) PO PRN; CYCLOPENTOLATE HCL 1% OPHTH SOLN 2 ML BOTTLE OP SCH; KETOROLAC TROMETHAMINE 0.5% EYE DROP 1 DROP DROPS OP SCH; OFLOXACIN 0.3% OPHTHALMIC SOLUTION 5 ML BOTTLE OP SCH; PHENYLEPHRINE 2.5% OPHTH SOLN 15 ML BOTTLE OP SCH; TROPICAMIDE 1% OPHTH SOLN 15 ML BOTTLE OP SCH
[2023-12-11] MEDS ORDERED: LIDOCAINE HCL/PF 1% SDV 5ML VIAL ONE (07:30)
[2023-12-11] MEDS ORDERED: EPINEPHrine/PF 1 MG/1 ML (1:1,000) AMPULE ONE (07:30)
[2023-12-11] MEDS ORDERED: POVIDONE-IODINE 5% OPHTHALMIC PREP 30 ML SOLUTION ONE (07:30)
[2023-12-11] MEDS ORDERED: PHENYLEPHRINE 2.5% OPTHALMIC DROP 2ML BOTTLE ONE (08:14)
[2023-12-11] MEDS ORDERED: KETOROLAC TROMETHAMINE 0.5% EYE DROP 1 DROP DROPS ONE (08:14)
[2023-12-11] MEDS ORDERED: CYCLOPENTOLATE HCL 1% OPHTH SOLN 2 ML BOTTLE ONE (08:15)
[2023-12-11] MEDS ORDERED: TROPICAMIDE 1% OPHTH SOLN 15 ML BOTTLE ONE (08:15)
[2023-12-11] MEDS ORDERED: OFLOXACIN 0.3% OPHTHALMIC SOLUTION 5 ML BOTTLE ONE (08:15)
[2023-12-11] MEDS: KETOROLAC TROMETHAMINE 0.5% EYE DROP 1 DROP DROPS OD ONE ×3 (08:20→08:40)
[2023-12-11] MEDS: CYCLOPENTOLATE HCL 1% OPHTH SOLN 2 ML BOTTLE OD ONE ×3 (08:20→08:40)
[2023-12-11] MEDS: TROPICAMIDE 1% OPHTH SOLN 15 ML BOTTLE OD ONE ×3 (08:20→08:40)
[2023-12-11] MEDS: OFLOXACIN 0.3% OPHTHALMIC SOLUTION 5 ML BOTTLE OD ONE ×3 (08:20→08:40)
[2023-12-11] MEDS: PHENYLEPHRINE 2.5% OPHTH SOLN 15 ML BOTTLE OD ONE ×3 (08:20→08:40)
[2023-12-11] MEDS ORDERED: MIDAZOLAM HCL 2 MG/2 ML SINGLE DOSE VIAL ONE (09:24)
[2023-12-11] MEDS: TETRACAINE 0.5% OPHTH SOLN 2 ML BOTTLE TP ONE (09:32)
[2023-12-11] MEDS: POVIDONE-IODINE 5% OPHTHALMIC PREP 30 ML SOLUTION OD ONE (09:35)
[2023-12-11] MEDS ORDERED: FENTANYL CITRATE/PF 50 MCG/ML VIAL ONE (09:37)
[2023-12-11] MEDS: LIDOCAINE HCL 1% PRESERVATIVE FREE - 30ML VIAL IO ONE (09:43)
[2023-12-11] MEDS ORDERED: PROPOFOL 20 ML ONE (09:44)
[2023-12-11] MEDS: BSS (NA/CA/MG/K) BALANCED SALT SOLUTION OPHTH SOLN 15 ML BOTTLE IO ONE ×2 (09:44→09:58)
[2023-12-11] MEDS: CHONDROITIN SU A/HYALUR SOD 1 KIT IO ONE (09:47)
[2023-12-11] MEDS: EPINEPHrine/PF 1 MG/1 ML (1:1,000) AMPULE IO ONE (09:51)
[2023-12-11] MEDS ORDERED: LIDOCAINE HCL/PF 2% SDV 5ML VIAL ONE (10:17)
[2023-12-11] MEDS ORDERED: BUPIVACAINE HCL/PF 0.75% 10 ML VIAL ONE (10:17)
[2023-12-11 10:36] VITALS: TEMP 98
[2023-12-11] MEDS ORDERED: TETRACAINE 0.5% OPHTH SOLN 2 ML BOTTLE ONE (10:59)
[2023-12-11 12:05] VITALS: BP 127/67; PULSE 76; RESP 20
== END 2023-12-11 11:20 ==
LOC: JASU-SURG 04:21
PROVIDERS: ATTEND Ophthalmology
PROC: 08RJ3JZ Replacement of Right Lens with Synthetic Substitute, Percutaneous Approach (ICD-10-PCS; principal; 2023-12-11 09:00)
DX: H26.9 Unspecified cataract (principal)
CPT/HCPCS: V2632